=== PATIENT | female | born 1965 | race Caucasian/White ===

== ENCOUNTER 2016-11-16 10:17 | Outpatient (CLI) | payer OTHER ==
--- NOTE | 2016-11-16 11:03 | DIAGNOSTIC IMAGING REPORT ---
PROCEDURE: CT HEAD WITHOUT CONTRAST INDICATION: HX OF TRAUMATIC BRAIN INJURY TECHNIQUE: Axial CT images were acquired through the head. Coronal and sagittal reformations were created. COMPARISON: None. FINDINGS: No intracranial hemorrhage or extraaxial fluid collections. Ventricles are mildly enlarged. Old jordan holes are noted from previous shunts. There is no mass, mass effect or midline shift. The mott-white matter differentiation is normal. There is no edema. The calvarium is intact. The paranasal sinuses and mastoid air cells are normally aerated. The extracranial soft tissues and orbits are normal. IMPRESSION: 1. Mild hydrocephalus. All CT scans at this facility use dose modulation, iterative reconstruction, and/or weight-based dosing when appropriate to reduce radiation dose to as low as reasonably achievable.
== END 2016-11-16 23:00 ==
LOC: CT SRH 10:17
DX: G91.9 Hydrocephalus, unspecified (principal); Z87.820 Personal history of traumatic brain injury